=== PATIENT | male | born 1985 | race Caucasian/White ===

== ENCOUNTER 2024-11-11 10:56 | Emergency (ER) | payer SELFPAY ==
[~2024-11-11] VITALS: Ht 172.7 cm; Wt 79.0 kg
[2024-11-11 12:58] VITALS: BP 126/73; TEMP 97.9; O2SAT 98
== END 2024-11-11 13:07 | disposition home or self-care (01) ==
LOC: M ED 10:56
DX: S63.501A Unspecified sprain of right wrist, initial encounter (principal); W00.9XXA Unspecified fall due to ice and snow, initial encounter; Y92.009 Unspecified place in unspecified non-institutional (private) residence as the place of occurrence of the external cause; Y93.89 Activity, other specified; Y99.9 Unspecified external cause status